=== PATIENT | female | born 1930 | race Caucasian/White ===

== ENCOUNTER → 2017-07-15 | Outpatient (CLI) | payer OTHER ==
[~2017-07-15] MED LIST: LASIX; LEVOXYL; LOVAPOW; POTASSIUM; TYLENOL; [UNRECOGNIZED DRUG - OTHER]
[2017-07-15 10:16] LABS: Basophils # (auto) 0 uL; Basophils % (auto) 0.9 % (0.0-2.0); Eosinophils # (auto) 0.2 uL; Eosinophils % (auto) 3.4 % (0.0-7.0); Hematocrit 41.9 % (36.0-46.0); Hemoglobin 14.3 g/dL (12.2-16.2); Lymphocytes # (auto) 1.5 uL; Lymphocytes % (auto) 27.9 % (10.0-50.0); Mean Corpuscular Hemoglobin 32.2 pg (28.0-32.0); Mean Corpuscular Volume 94.6 fL (80.0-100.0); Mean Platelet Volume 8.1 fL (6.9-10.8); Monocytes # (auto) 0.4 uL; Monocytes % (auto) 8.4 % (0.0-12.0); Neutrophils # (auto) 3.2 uL; Neutrophils % (auto) 59.4 % (37.0-80.0); Platelet Count (auto) 296 10^3/uL (140-450); Red Cell Distribution Width 13.2 % (11.8-14.3); White Blood Cell 5.3 10^3/uL (4.4-10.8)
[2017-07-15 10:39] LABS: Albumin 3.7 g/dL (3.4-5.0); BUN/Creatinine Ratio 21.6; Bilirubin, Total 0.5 mg/dL (0.2-1.0); Potassium 3.8 mmol/L (3.5-5.1); Total Protein 7.1 g/dL (6.4-8.2)
[2017-07-15 10:41] LABS: Urine Bilirubin Negative (Negative); Urine Blood Negative /uL (Negative); Urine Color Yellow (Yellow); Urine Glucose Normal (Normal); Urine Ketone Negative (Negative); Urine Mucus FEW (None Seen); Urine Nitrite Negative (Negative); Urine RBC 1 /hpf (0 - 4); Urine Squamous Epithelial Cell FEW /hpf (<5); Urine Urobilinogen Normal (Negative)
== END | disposition home or self-care (01) ==
LOC: LAB 08:25
PROVIDERS: ATTEND Internal Medicine
DX: I11.0 Hypertensive heart disease with heart failure (principal); I50.9 Heart failure, unspecified
CPT/HCPCS: 36415; 80053; 80061; 81001; 82043; 84439; 84443; 85025; 85652

== ENCOUNTER 2017-12-01 09:20 | Emergency (ER) | payer OTHER ==
[~2017-12-01] VITALS: Ht 180.3 cm; Wt 83.9 kg
[2017-12-01 10:09] LABS: Basophils # (auto) 0 uL; Basophils % (auto) 0.3 % (0.0-2.0); Eosinophils # (auto) 0.2 uL; Eosinophils % (auto) 2.5 % (0.0-7.0); Hematocrit 41.5 % (36.0-46.0); Hemoglobin 14.1 g/dL (12.2-16.2); Lymphocytes # (auto) 1.4 uL; Lymphocytes % (auto) 18.3 % (10.0-50.0); Mean Corpuscular Hemoglobin 31.7 pg (28.0-32.0); Mean Corpuscular Hgb Conc. 33.9 g/dL (32.0-36.0); Mean Corpuscular Volume 93.4 fL (80.0-100.0); Monocytes # (auto) 0.6 uL; Monocytes % (auto) 8.2 % (0.0-12.0); Neutrophils # (auto) 5.2 uL; Neutrophils % (auto) 70.7 % (37.0-80.0); Nucleated Red Blood Cells % 0.1 %; Platelet Count (auto) 321 10^3/uL (140-450); Red Blood Cells 4.44 10^6/uL (4.0-5.20); Red Cell Distribution Width 13.8 % (11.8-14.3); White Blood Cell 7.4 10^3/uL (4.4-10.8)
[2017-12-01 10:36] LABS: Alanine Aminotransferase 16 U/L (13-56); Albumin 3.8 g/dL (3.4-5.0); Alkaline Phosphatase 65 U/L (45-117); Anion Gap 10 (5-15); Aspartate Aminotransferase 18 U/L (15-37); BUN/Creatinine Ratio 20.9; Bilirubin, Total 0.7 mg/dL (0.2-1.0); Blood Urea Nitrogen 18 mg/dL (7-18); Calcium 8.9 mg/dL (8.5-10.1); Carbon Dioxide 24 mmol/L (21-32); Chloride 107 mmol/L (98-107); GFR African American 80 mL/min; GFR Non-African American 66 mL/min; Glucose 100 mg/dL (74-106); Sodium 141 mmol/L (136-145); Total Protein 7.3 g/dL (6.4-8.2)
[2017-12-01] MEDS ORDERED: ASPirin-EC 81 mg tab PO ONE (12:00)
[2017-12-01] MEDS ORDERED: ONDANSETRON HCL 4 MG/2 ML VIAL IV ONE (12:30)
[2017-12-01] MEDS ORDERED: MORPHINE SULFATE 4 MG/ML SYR/VIAL IV ONE (13:15)
[2017-12-01 13:43] LABS: Amylase 57 U/L (25-115); Lipase 148 U/L (73-393)
[2017-12-01] MEDS ORDERED: IOHEXOL 350 MG/ML 100ML IJ ONE (16:05)
[2017-12-01 18:07] VITALS: BP 171/77
== END 2017-12-01 18:40 | disposition home or self-care (01) ==
LOC: ER 09:20 → MERGE 09:20 → ER 18:40
DX: R07.89 Other chest pain (principal); N39.0 Urinary tract infection, site not specified; I10 Essential (primary) hypertension; E07.89 Other specified disorders of thyroid; Z90.89 Acquired absence of other organs
CPT/HCPCS: 36415; 71045; 71275; 76705; 80053; 82150; 83690; 84484; 85025; 85379; 93005; 94761; 96374; 96375; 99285; J2270; J2405; Q9967

== ENCOUNTER → 2018-02-12 | Outpatient (CLI) | payer OTHER ==
[~2018-02-12] MED LIST changes: +ASPI81TA27 PO; +FURO40TA4 PO; +LEVO25TA6 PO; +LISI-646 PO
== END | disposition home or self-care (01) ==
LOC: XYW 07:57
PROVIDERS: ATTEND Internal Medicine Cardiovascular Disease
DX: I35.0 Nonrheumatic aortic (valve) stenosis (principal); I34.0 Nonrheumatic mitral (valve) insufficiency; I70.0 Atherosclerosis of aorta; I11.0 Hypertensive heart disease with heart failure; I50.9 Heart failure, unspecified; E78.5 Hyperlipidemia, unspecified; E03.9 Hypothyroidism, unspecified
CPT/HCPCS: 93306

== ENCOUNTER → 2018-03-04 | Day surgery (SDC) | payer OTHER ==
[2018-03-03 12:27] LABS: Basophils # (auto) 0.1 uL; Basophils % (auto) 0.9 % (0.0-2.0); Eosinophils # (auto) 0.2 uL; Eosinophils % (auto) 2.5 % (0.0-7.0); Hematocrit 38.4 % (36.0-46.0); Hemoglobin 12.9 g/dL (12.2-16.2); Lymphocytes # (auto) 1.4 uL; Lymphocytes % (auto) 21.3 % (10.0-50.0); Mean Corpuscular Hemoglobin 31.4 pg (28.0-32.0); Mean Corpuscular Hgb Conc. 33.5 g/dL (32.0-36.0); Mean Corpuscular Volume 93.6 fL (80.0-100.0); Monocytes # (auto) 0.5 uL; Monocytes % (auto) 7.8 % (0.0-12.0); Neutrophils # (auto) 4.3 uL; Neutrophils % (auto) 67.5 % (37.0-80.0); Nucleated Red Blood Cells % 0.2 %; Platelet Count (auto) 302 10^3/uL (140-450); Red Cell Distribution Width 13.4 % (11.8-14.3); White Blood Cell 6.4 10^3/uL (4.4-10.8)
[2018-03-03 12:36] LABS: Urine Bacteria NONE SEEN /hpf (None Seen); Urine Blood Negative /uL (Negative); Urine Specific Gravity 1.009 (1.001-1.035); Urine WBC <1 /hpf (0 - 5)
[2018-03-03 12:48] LABS: INR 0.97 (0.9-1.15); Partial Thromboplastin Time 28.4 sec (23.78-33.04); Prothrombin Time 10.4 sec (9.27-12.13)
[2018-03-03 12:53] LABS: Albumin 3.9 g/dL (3.4-5.0); BUN/Creatinine Ratio 23.2; Bilirubin, Total 0.7 mg/dL (0.2-1.0); Calcium 9.5 mg/dL (8.5-10.1); Total Protein 7.1 g/dL (6.4-8.2)
[~2018-03-04] VITALS: Ht 177.8 cm; Wt 81.6 kg
[~2018-03-04] MED LIST changes: +GLYCOPYRROLATE 0.2 MG/ML 1ML VIAL IV ONE; -LASIX; -LEVOXYL; -LOVAPOW; +ONDANSETRON HCL 4 MG/2 ML VIAL IV ONE; -POTASSIUM; +PROPOFOL 10 MG/ML 20 ML IV ONE; -TYLENOL; -[UNRECOGNIZED DRUG - OTHER]; +ceFAZolin 1GM/100ML 100 ML IV ONE; +ePHEDrine SULFATE 50 MG/ML AMP IV PRN; +fentaNYL CITRATE 100 MCG/2 ML VL IV ONE; +fentaNYL CITRATE 100 MCG/2 ML VL ONE; +hydrALAZINE HCL 20 MG/ML VL IV PRN
[2018-03-04 10:45] VITALS: BP 150/86
== END | disposition home or self-care (01) ==
LOC: SUR 06:59
PROVIDERS: ATTEND Urology
DX: N20.0 Calculus of kidney (principal); H40.9 Unspecified glaucoma; E03.9 Hypothyroidism, unspecified; J45.909 Unspecified asthma, uncomplicated; I50.30 Unspecified diastolic (congestive) heart failure; I12.9 Hypertensive chronic kidney disease with stage 1 through stage 4 chronic kidney disease, or unspecified chronic kidney disease; Z79.82 Long term (current) use of aspirin; Z79.899 Other long term (current) drug therapy; F41.9 Anxiety disorder, unspecified; I70.0 Atherosclerosis of aorta; I70.8 Atherosclerosis of other arteries; E78.5 Hyperlipidemia, unspecified; I50.9 Heart failure, unspecified; N18.2 Chronic kidney disease, stage 2 (mild)
CPT/HCPCS: 36415; 50590; 80053; 81001; 85025; 85610; 85730; J0690; J2704; J3010

== ENCOUNTER 2019-09-13 23:58 | Inpatient (IN) | payer OTHER ==
[~2019-09-13] VITALS: Ht 177.8 cm; Wt 81.5 kg
[~2019-09-13 23:58] MED LIST changes: +ASPI-404 PO; -ASPI81TA27 PO; -GLYCOPYRROLATE 0.2 MG/ML 1ML VIAL IV ONE; -ONDANSETRON HCL 4 MG/2 ML VIAL IV ONE; -PROPOFOL 10 MG/ML 20 ML IV ONE; -ceFAZolin 1GM/100ML 100 ML IV ONE; -ePHEDrine SULFATE 50 MG/ML AMP IV PRN; -fentaNYL CITRATE 100 MCG/2 ML VL IV ONE; -fentaNYL CITRATE 100 MCG/2 ML VL ONE; -hydrALAZINE HCL 20 MG/ML VL IV PRN
[2019-09-14] VITALS (7 sets, daily range): BP systolic 110–140; BP diastolic 55–66
--- NOTE | 2019-09-14 | NUR ---
Direct Admit Note ALEC BURGOS admitted to Telemetry/MS unit as a direct admit from [facility]. Patient oriented to Elis Singleton, primary RN, unit, room, bed, and unit. Patient is oriented to self only at this time. Patient now on continuous telemetry monitoring, tele box # 3. Patient placed on bedside oxygen and weighed by bed scale. MD notified of patients arrival and admit orders received. Will continue to round q1hr and prn.
[2019-09-14] MEDS ORDERED: LATA0.0020 OP (00:13)
[2019-09-14] MEDS ORDERED: ACETAMINOPHEN 325 MG TAB PO PRN (00:30)
[2019-09-14] MEDS ORDERED: ALUM & MAG HYDROX-SIMETH LIQ(MAALOX) 30 ML PO PRN (00:30)
[2019-09-14] MEDS ORDERED: LORazepam 0.5 MG TAB PO PRN (00:30)
[2019-09-14] MEDS ORDERED: DOCUSATE SOD 100 MG CAP PO PRN (00:30)
[2019-09-14] MEDS ORDERED: HYDROcodone-ACET 5/325MG TAB PO PRN (00:30)
[2019-09-14] MEDS ORDERED: ONDANSETRON HCL 4 MG/2 ML VIAL IV PRN (00:30)
[2019-09-14] MEDS ORDERED: MORPHINE SULFATE 4 MG/ML SYR/VIAL IV PRN (00:30)
--- NOTE | 2019-09-14 01:42 | NUR ---
UA SENT TO LAB
[2019-09-14] MEDS: SODIUM CHLORIDE 0.9% 1,000 ML IV SCH ×2 (01:43→17:11)
[2019-09-14 02:11] LABS: Urine Bacteria FEW /hpf (None Seen); Urine Blood 3+ /uL (Negative); Urine Mucus FEW (None Seen); Urine WBC 34 /hpf (0 - 5)
[2019-09-14] MEDS ORDERED: FUROSEMIDE 40 MG TAB PO SCH (06:00)
[2019-09-14] MEDS: LEVOTHYROXINE SODIUM 25 MCG TAB PO SCH (06:34)
[2019-09-14 07:54] LABS: Basophils # (auto) 0.1 uL; Basophils % (auto) 0.7 % (0.0-2.0); Eosinophils # (auto) 0 uL; Eosinophils % (auto) 0.4 % (0.0-7.0); Hematocrit 33.7 % (36.0-46.0); Hemoglobin 11.8 g/dL (12.2-16.2); Lymphocytes # (auto) 0.9 uL; Lymphocytes % (auto) 10.3 % (10.0-50.0); Mean Corpuscular Hemoglobin 32.9 pg (28.0-32.0); Mean Corpuscular Hgb Conc. 35.1 g/dL (32.0-36.0); Mean Corpuscular Volume 93.5 fL (80.0-100.0); Monocytes # (auto) 0.8 uL; Neutrophils % (auto) 79.6 % (37.0-80.0); Platelet Count (auto) 286 10^3/uL (140-450); Red Cell Distribution Width 13.2 % (11.8-14.3); White Blood Cell 8.8 10^3/uL (4.4-10.8)
[2019-09-14 09:15] LABS: BUN/Creatinine Ratio 25.3; Calcium 8.2 mg/dL (8.5-10.1); Potassium 3.9 mmol/L (3.5-5.1)
[2019-09-14] MEDS: LATANOPROST 0.005 % OPTH(EYE) SOL 2.5ML OP SCH ×2 (10:55→21:55)
[2019-09-14] MEDS: cefTRIAXone 1GM/50ML D5W 50 ML IV SCH (10:55)
[2019-09-14] MEDS: ASPirin-EC 81 mg tab PO SCH (10:55)
[2019-09-14] MEDS: LISINOPRIL 20 MG TAB PO SCH ×2 (10:56→21:56)
--- NOTE | 2019-09-14 13:15 | NUR ---
CALLED PHARMACY TO CLARIFY HOME MEDICATION.
--- NOTE | 2019-09-14 13:28 | NUR ---
PATIENT BEING TAKEN DOWN FOR MRI. NO S/S OF DISTRESS NOTED AT THIS TIME.
[2019-09-14] MEDS ORDERED: LORazepam 2MG/ML-1ML VIAL IV ONE (13:45)
--- NOTE | 2019-09-14 13:45 | NUR ---
PT WENT DOWN TO MRI. ATTEMPT P.T. LATER.
--- NOTE | 2019-09-14 19:35 | NUR ---
Dr Bui at bedside
--- NOTE | 2019-09-14 20:03 | NUR ---
open note assumed care of pt. upon entering room pt awake, alert and oriented x4. pt on room air no distress noted or expressed. pt denies any pain. pt has sifuentes catheter draining clear yellow. pt updated on plan of care, no questions at this time. pt bed locked, low and 2x rails up. call light in reach, encouraged to call as needed. this nurse will round q1hr and prn.
[2019-09-14] MEDS ORDERED: ATORVASTATIN 20 MG TAB PO SCH (22:00)
[2019-09-15 05:00] VITALS: BP 114/65
[2019-09-15 06:33] LABS: Basophils # (auto) 0.1 uL; Basophils % (auto) 0.8 % (0.0-2.0); Eosinophils # (auto) 0.4 uL; Eosinophils % (auto) 4.9 % (0.0-7.0); Hematocrit 31.4 % (36.0-46.0); Hemoglobin 11.1 g/dL (12.2-16.2); Lymphocytes # (auto) 1.4 uL; Lymphocytes % (auto) 19.1 % (10.0-50.0); Mean Corpuscular Hgb Conc. 35.5 g/dL (32.0-36.0); Monocytes # (auto) 0.8 uL; Monocytes % (auto) 11.2 % (0.0-12.0); Neutrophils # (auto) 4.8 uL; Nucleated Red Blood Cells % 0.1 %; Platelet Count (auto) 245 10^3/uL (140-450); Red Blood Cells 3.37 10^6/uL (4.0-5.20); Red Cell Distribution Width 13.1 % (11.8-14.3); White Blood Cell 7.4 10^3/uL (4.4-10.8)
[2019-09-15 06:49] LABS: Magnesium 1.9 mg/dL (1.6-2.6); Potassium 3.8 mmol/L (3.5-5.1)
[2019-09-15] MEDS: LEVOTHYROXINE SODIUM 25 MCG TAB PO SCH (06:51)
[2019-09-15 06:53] LABS: BUN/Creatinine Ratio 25.7
[2019-09-15 08:29] VITALS: BP 132/54
[2019-09-15] MEDS: LATANOPROST 0.005 % OPTH(EYE) SOL 2.5ML OP SCH ×2 (10:00→10:25)
[2019-09-15] MEDS: SODIUM CHLORIDE 0.9% 1,000 ML IV SCH (10:25)
[2019-09-15] MEDS: cefTRIAXone 1GM/50ML D5W 50 ML IV SCH (10:25)
[2019-09-15] MEDS: ASPirin-EC 81 mg tab PO SCH (10:25)
[2019-09-15] MEDS: LISINOPRIL 20 MG TAB PO SCH (10:26)
--- NOTE | 2019-09-15 11:55 | NUR ---
EEG COMPLETED AT BEDSIDE.
[2019-09-15] MEDS ORDERED: LATANOPROST 0.005 % OPTH(EYE) SOL 2.5ML OP SCH ×2 (12:00→22:00)
[2019-09-15 12:57] VITALS: BP 137/69
[2019-09-15] MEDS ORDERED: MAGNESIUM SULFATE 1GM/100ML 100 ML IV ONE (13:00)
--- NOTE | 2019-09-15 13:00 | NUR ---
Sifuentes catheter dc'd Order to discontinue sifuentes catheter. Sifuentes dc'd with clean technique following deflation of balloon. Patient tolerated well with no complaints of pain. Continue care.
--- NOTE | 2019-09-15 15:11 | NUR ---
IV insertion IV access obtained, via clean sterile technique by inserting 20 gauge catheter at LFA after 1 attempt(s). IV secured properly. No trauma to site. Patient tolerated well. LFA IV DC'D DUE TO INFILTRATION NOTE:
--- NOTE | 2019-09-15 16:35 | NUR ---
Assessment and SS consult Pt is an 89 yr old alert and oriented female. SS consult given for "HH for PT, med management and vitals" and for "D/C planning" Pt lives alone with a close friend on her property who helps out. Pt's friend, Ailyn Swanson is her emergency contact at [phone]. Prior to admit, pt was ambulatory with walker and was independent with ADL's. Pt brought to hospital due to altered mental status. pt has income and doesn't have an AD on file. Pt's friend can transport home upon d/c. Pt would benefit from receiving HH for PT, med management, and vitals due to living alone and having limited mobility and assistance. Addendum: 09/15/19 at 1641 by JUVENTINO CARRANZA Amended: Links added.
[2019-09-15 16:43] VITALS: BP 142/60
--- NOTE | 2019-09-15 17:30 | NUR ---
PATIENT URINATED CLEAR YELLOW URINE.
--- NOTE | 2019-09-15 18:00 | NUR ---
PT REPORTS THAT SHE WALKS FINE AND DOES NOT NEED P.T.
[2019-09-15 21:36] VITALS: BP 151/73
[2019-09-15] MEDS ORDERED: ATORVASTATIN 20 MG TAB PO SCH (22:00)
[2019-09-15] MEDS: ASPIRIN-DIPYRIDAMOLE (25/200MG) CAPSULE PO SCH (22:24)
[2019-09-16] MEDS: SODIUM CHLORIDE 0.9% 1,000 ML IV SCH (02:25)
[2019-09-16 05:07] VITALS: BP 144/62
[2019-09-16] MEDS: LEVOTHYROXINE SODIUM 25 MCG TAB PO SCH (06:44)
--- NOTE | 2019-09-16 07:50 | NUR ---
ASSUMED CARE OF PT AWAKE PLEASANT APPROPRIATE. LUNG SOUNDS CLEAR. ANTICIPATING DC HOME TODAY. EXPLAINS THAT SHE HAS A TALL WALKER GIFTED TO HER BY FAMILY THAT WORKS WELL FOR HER.
[2019-09-16] MEDS ORDERED: ATOR20TA50 PO (08:23)
[2019-09-16] MEDS ORDERED: AGG25C PO (08:23)
[2019-09-16] MEDS ORDERED: LISI-646 PO (08:23)
[2019-09-16 09:00] VITALS: BP 147/69
--- NOTE | 2019-09-16 09:00 | NUR ---
MD COMES TO BEDSIDE. PT IS IN BATHROOM. DEMONSTRATES SLOW STEADY GAIT FROM BATHROOM TO BEDSIDE WITH OUT USE OF WALKER AND MANIPULATES THE IV POLE WITH EASE. PT STATES EARLIER IN EARLIER ASSESSMENT THAT HER DAUGHTER IS COMING TODAY TO STAY WITH HER AT HER HOME. EXPLAINS DC HOME TODAY.
[2019-09-16] MEDS: ASPIRIN-DIPYRIDAMOLE (25/200MG) CAPSULE PO SCH (10:00)
[2019-09-16] MEDS ORDERED: LISINOPRIL 20 MG TAB PO SCH (10:00)
[2019-09-16] MEDS ORDERED: LEVO250T19 PO (10:30)
[2019-09-16] MEDS: cefTRIAXone 1GM/50ML D5W 50 ML IV SCH (10:48)
[2019-09-16 11:59] VITALS: BP 147/69
--- NOTE | 2019-09-16 12:22 | NUR ---
MESSAGE LEFT WITH PHYSICAL THERAPY ASKING TO ROUND ON PT BEFORE DC HOME PER REQUEST OF .
[2019-09-16 13:00] VITALS: BP 157/75
--- NOTE | 2019-09-16 14:00 | NUR ---
PT DECLINES OUT[employer]OR [employer] FOR HOME HEALTH BOTH PATIENT AND DAUGHTER BELIEVE HER LIVING ARRANGEMENTS ARE ADEQUATE.
--- NOTE | 2019-09-16 14:25 | NUR ---
PT STATES PT AMBULATES WELL INDEPENDENTLY. OK TO DC HOME.
--- NOTE | 2019-09-16 16:12 | NUR ---
primary rn stated pt has declined HH. She is to put her note in reflecting that statement
== END 2019-09-16 14:30 | disposition home or self-care (01) | DRG 64 ==
LOC: TELE-EAST 23:58
PROVIDERS: ADMIT Hospitalist; ATTEND Internal Medicine
DX: I63.542 Cerebral infarction due to unspecified occlusion or stenosis of left cerebellar artery (principal); G93.41 Metabolic encephalopathy; N39.0 Urinary tract infection, site not specified; I10 Essential (primary) hypertension; E78.5 Hyperlipidemia, unspecified; E03.9 Hypothyroidism, unspecified; Z96.653 Presence of artificial knee joint, bilateral; Z79.82 Long term (current) use of aspirin; Z90.49 Acquired absence of other specified parts of digestive tract
CPT/HCPCS: 36415; 70551; 80048; 80061; 81001; 83735; 84443; 85025; 85652; 87081; 87086; 93306; 95819; G0378; J0696

== ENCOUNTER → 2019-10-07 | Outpatient (CLI) | payer OTHER ==
[~2019-10-07] MED LIST changes: +ATOR20TA50 PO; -FURO40TA4 PO; +LATA0.0020 OP; +LEVO250T19 PO
[2019-10-07 10:38] LABS: Basophils # (auto) 0 uL; Basophils % (auto) 0.4 % (0.0-2.0); Eosinophils # (auto) 0.1 uL; Eosinophils % (auto) 1.2 % (0.0-7.0); Hematocrit 37.2 % (36.0-46.0); Hemoglobin 12.7 g/dL (12.2-16.2); Lymphocytes # (auto) 1.1 uL; Lymphocytes % (auto) 12.5 % (10.0-50.0); Mean Corpuscular Hemoglobin 32.3 pg (28.0-32.0); Mean Corpuscular Hgb Conc. 34.2 g/dL (32.0-36.0); Mean Corpuscular Volume 94.3 fL (80.0-100.0); Monocytes # (auto) 0.5 uL; Monocytes % (auto) 6.2 % (0.0-12.0); Neutrophils # (auto) 6.8 uL; Neutrophils % (auto) 79.7 % (37.0-80.0); Platelet Count (auto) 313 10^3/uL (140-450); Red Blood Cells 3.95 10^6/uL (4.0-5.20); Red Cell Distribution Width 14.2 % (11.8-14.3); White Blood Cell 8.5 10^3/uL (4.4-10.8)
[2019-10-07 10:50] LABS: Calcium 9.3 mg/dL (8.5-10.1); Potassium 4.1 mmol/L (3.5-5.1)
[2019-10-07 10:55] LABS: BUN/Creatinine Ratio 18.3; Bilirubin, Total 0.8 mg/dL (0.2-1.0); Total Protein 7.3 g/dL (6.4-8.2)
== END | disposition home or self-care (01) ==
LOC: LAB 10:23
PROVIDERS: ATTEND Internal Medicine
DX: I10 Essential (primary) hypertension (principal); R51 Headache
CPT/HCPCS: 36415; 80053; 85025

== ENCOUNTER → 2019-10-21 | Outpatient (CLI) | payer OTHER ==
[~2019-10-21] MED LIST changes: +CIP500T PO; +CLOP75TA28 PO; -LISI-646 PO; +LISI40TA PO; +MET500T PO
[2019-10-21 13:32] LABS: Basophils # (auto) 0 uL; Basophils % (auto) 0.4 % (0.0-2.0); Eosinophils # (auto) 0.1 uL; Eosinophils % (auto) 1.8 % (0.0-7.0); Hematocrit 35.7 % (36.0-46.0); Hemoglobin 12.1 g/dL (12.2-16.2); Lymphocytes % (auto) 14.2 % (10.0-50.0); Mean Corpuscular Hemoglobin 31.5 pg (28.0-32.0); Mean Corpuscular Hgb Conc. 33.9 g/dL (32.0-36.0); Mean Corpuscular Volume 92.8 fL (80.0-100.0); Monocytes # (auto) 0.7 uL; Monocytes % (auto) 9.2 % (0.0-12.0); Neutrophils # (auto) 5.5 uL; Neutrophils % (auto) 74.4 % (37.0-80.0); Platelet Count (auto) 337 10^3/uL (140-450); Red Blood Cells 3.85 10^6/uL (4.0-5.20); Red Cell Distribution Width 13.7 % (11.8-14.3); White Blood Cell 7.4 10^3/uL (4.4-10.8)
[2019-10-21 13:41] LABS: Albumin 3.7 g/dL (3.4-5.0); Calcium 9.2 mg/dL (8.5-10.1); Potassium 3.6 mmol/L (3.5-5.1)
[2019-10-21 13:49] LABS: BUN/Creatinine Ratio 10.8; Bilirubin, Total 0.5 mg/dL (0.2-1.0); CRP High Sensitivity 1.92 mg/dL (< 0.3); Total Protein 7.2 g/dL (6.4-8.2)
== END | disposition home or self-care (01) ==
LOC: LAB 12:55
PROVIDERS: ATTEND Internal Medicine
DX: K57.32 Diverticulitis of large intestine without perforation or abscess without bleeding (principal)
CPT/HCPCS: 36415; 80053; 85025; 85652; 86141

== ENCOUNTER → 2019-11-04 | Outpatient (CLI) | payer OTHER ==
[2019-11-04 11:46] LABS: Basophils # (auto) 0 uL; Basophils % (auto) 0.6 % (0.0-2.0); Eosinophils # (auto) 0.1 uL; Eosinophils % (auto) 1.2 % (0.0-7.0); Hematocrit 39.8 % (36.0-46.0); Hemoglobin 13.5 g/dL (12.2-16.2); Lymphocytes # (auto) 1.2 uL; Mean Corpuscular Hemoglobin 31.5 pg (28.0-32.0); Mean Corpuscular Volume 92.5 fL (80.0-100.0); Monocytes # (auto) 0.4 uL; Monocytes % (auto) 5.4 % (0.0-12.0); Neutrophils # (auto) 5.5 uL; Neutrophils % (auto) 76.8 % (37.0-80.0); Platelet Count (auto) 415 10^3/uL (140-450); Red Cell Distribution Width 13.7 % (11.8-14.3); White Blood Cell 7.2 10^3/uL (4.4-10.8)
[2019-11-04 12:29] LABS: CRP High Sensitivity 0.04 mg/dL (< 0.3); Potassium 4.1 mmol/L (3.5-5.1)
== END | disposition home or self-care (01) ==
LOC: LAB 10:54
PROVIDERS: ATTEND Internal Medicine
DX: K57.32 Diverticulitis of large intestine without perforation or abscess without bleeding (principal)
CPT/HCPCS: 36415; 84132; 85025; 86141

== ENCOUNTER → 2020-08-17 | Outpatient (CLI) | payer OTHER ==
[~2020-08-17] MED LIST changes: -ASPI-404 PO; +ASPI-543 PO; -LISI40TA PO; +LISI40TA11 PO
[2020-08-17 09:26] LABS: Basophils # (auto) 0 10 ^3/uL (0-0.2); Basophils % (auto) 0.5 % (0.0-2.0); Eosinophils # (auto) 0.2 10 ^3/uL (0-0.8); Eosinophils % (auto) 2.4 % (0.0-7.0); Hematocrit 36.9 % (36.0-46.0); Hemoglobin 12.2 g/dL (12.2-16.2); Lymphocytes % (auto) 11.6 % (10.0-50.0); Mean Corpuscular Hemoglobin 30.9 pg (28.0-32.0); Mean Corpuscular Hgb Conc. 32.9 g/dL (32.0-36.0); Mean Corpuscular Volume 93.8 fL (80.0-100.0); Monocytes # (auto) 0.6 10 ^3/uL (0-1.3); Monocytes % (auto) 7.4 % (0.0-12.0); Neutrophils # (auto) 6.5 10 ^3/uL (1.6-8.6); Neutrophils % (auto) 78.1 % (37.0-80.0); Nucleated Red Blood Cells % 0.1 %; Platelet Count (auto) 343 10^3/uL (140-450); Red Blood Cells 3.94 10^6/uL (4.0-5.20); Red Cell Distribution Width 13.2 % (11.8-14.3); White Blood Cell 8.3 10^3/uL (4.4-10.8)
[2020-08-17 09:52] LABS: Albumin 3.8 g/dL (3.4-5.0); Calcium 9.1 mg/dL (8.5-10.1); Potassium 4.2 mmol/L (3.5-5.1); Uric Acid 6.6 mg/dL (2.6-6.0)
[2020-08-17 09:58] LABS: BUN/Creatinine Ratio 34.7; Bilirubin, Total 0.8 mg/dL (0.2-1.0)
[2020-08-17 15:43] LABS: Urine Blood Negative /uL (Negative); Urine Specific Gravity 1.024 (1.001-1.035)
== END | disposition home or self-care (01) ==
LOC: LAB 08:43
PROVIDERS: ATTEND Internal Medicine
DX: I10 Essential (primary) hypertension (principal)
CPT/HCPCS: 36415; 80053; 80061; 81003; 84439; 84443; 84550; 85025; 85652; 86038; 86200; 86431

== ENCOUNTER → 2020-10-20 | Outpatient (CLI) | payer OTHER ==
[2020-10-20 11:55] LABS: Basophils # (auto) 0.1 10 ^3/uL (0-0.2); Basophils % (auto) 0.6 % (0.0-2.0); Eosinophils # (auto) 0.2 10 ^3/uL (0-0.8); Eosinophils % (auto) 1.7 % (0.0-7.0); Hematocrit 35.1 % (36.0-46.0); Hemoglobin 11.9 g/dL (12.2-16.2); Lymphocytes # (auto) 1.3 10 ^3/uL (0.4-5.4); Lymphocytes % (auto) 13.6 % (10.0-50.0); Mean Corpuscular Hemoglobin 31.1 pg (28.0-32.0); Mean Corpuscular Hgb Conc. 33.7 g/dL (32.0-36.0); Mean Corpuscular Volume 92.3 fL (80.0-100.0); Monocytes # (auto) 0.6 10 ^3/uL (0-1.3); Monocytes % (auto) 6.6 % (0.0-12.0); Neutrophils # (auto) 7.2 10 ^3/uL (1.6-8.6); Neutrophils % (auto) 77.5 % (37.0-80.0); Platelet Count (auto) 313 10^3/uL (140-450); Red Blood Cells 3.81 10^6/uL (4.0-5.20); Red Cell Distribution Width 13.1 % (11.8-14.3); White Blood Cell 9.2 10^3/uL (4.4-10.8)
[2020-10-20 13:35] LABS: Potassium 4.4 mmol/L (3.5-5.1)
[2020-10-20 13:43] LABS: Albumin 3.7 g/dL (3.4-5.0); BUN/Creatinine Ratio 35.5; Bilirubin, Total 0.5 mg/dL (0.2-1.0); Calcium 8.7 mg/dL (8.5-10.1); Total Protein 7.1 g/dL (6.4-8.2)
[2020-10-21 08:07] LABS: Immunoglobulin G, Serum 856 mg/dL (586-1602)
== END | disposition home or self-care (01) ==
LOC: LAB 11:37
PROVIDERS: ATTEND Internal Medicine
DX: I10 Essential (primary) hypertension (principal); E79.0 Hyperuricemia without signs of inflammatory arthritis and tophaceous disease; G62.9 Polyneuropathy, unspecified
CPT/HCPCS: 36415; 80053; 82607; 82784; 84550; 85025; 85652; 86334

== ENCOUNTER → 2021-01-10 | Outpatient (CLI) | payer OTHER ==
[2021-01-10 14:44] LABS: Basophils # (auto) 0 10 ^3/uL (0-0.2); Basophils % (auto) 0.5 % (0.0-2.0); Eosinophils # (auto) 0.2 10 ^3/uL (0-0.8); Eosinophils % (auto) 2.8 % (0.0-7.0); Hematocrit 37.9 % (36.0-46.0); Hemoglobin 12.8 g/dL (12.2-16.2); Lymphocytes % (auto) 22.4 % (10.0-50.0); Mean Corpuscular Hemoglobin 30.9 pg (28.0-32.0); Mean Corpuscular Hgb Conc. 33.8 g/dL (32.0-36.0); Mean Corpuscular Volume 91.5 fL (80.0-100.0); Monocytes # (auto) 0.6 10 ^3/uL (0-1.3); Monocytes % (auto) 7.3 % (0.0-12.0); Neutrophils # (auto) 5.8 10 ^3/uL (1.6-8.6); Nucleated Red Blood Cells % 0.1 %; Platelet Count (auto) 329 10^3/uL (140-450); Red Blood Cells 4.15 10^6/uL (4.0-5.20); Red Cell Distribution Width 13.3 % (11.8-14.3); White Blood Cell 8.7 10^3/uL (4.4-10.8)
== END | disposition home or self-care (01) ==
LOC: LAB 14:07
PROVIDERS: ATTEND Internal Medicine
DX: D64.9 Anemia, unspecified (principal)
CPT/HCPCS: 36415; 84132; 85025

== ENCOUNTER → 2021-02-23 | Outpatient (CLI) | payer OTHER ==
[2021-02-23 16:28] LABS: Basophils # (auto) 0.1 10 ^3/uL (0-0.2); Basophils % (auto) 0.7 % (0.0-2.0); Eosinophils # (auto) 0.1 10 ^3/uL (0-0.8); Eosinophils % (auto) 1.5 % (0.0-7.0); Hematocrit 36.9 % (36.0-46.0); Hemoglobin 12.7 g/dL (12.2-16.2); Lymphocytes # (auto) 1.8 10 ^3/uL (0.4-5.4); Lymphocytes % (auto) 26.7 % (10.0-50.0); Mean Corpuscular Hgb Conc. 34.4 g/dL (32.0-36.0); Mean Corpuscular Volume 93.1 fL (80.0-100.0); Monocytes # (auto) 0.6 10 ^3/uL (0-1.3); Neutrophils # (auto) 4.4 10 ^3/uL (1.6-8.6); Neutrophils % (auto) 63.1 % (37.0-80.0); Nucleated Red Blood Cells % 0.3 %; Platelet Count (auto) 301 10^3/uL (140-450); Red Blood Cells 3.96 10^6/uL (4.0-5.20); Red Cell Distribution Width 13.8 % (11.8-14.3); White Blood Cell 6.9 10^3/uL (4.4-10.8)
[2021-02-23 16:44] LABS: Albumin 4.3 g/dL (3.4-5.0); BUN/Creatinine Ratio 38.5; CRP High Sensitivity 0.02 mg/dL (< 0.3); Calcium 9.5 mg/dL (8.5-10.1); Potassium 4.3 mmol/L (3.5-5.1)
[2021-02-23 16:46] LABS: Bilirubin, Total 0.5 mg/dL (0.2-1.0); Total Protein 7.7 g/dL (6.4-8.2)
== END | disposition home or self-care (01) ==
LOC: LAB 15:41
PROVIDERS: ATTEND Internal Medicine
DX: I10 Essential (primary) hypertension (principal); M25.50 Pain in unspecified joint
CPT/HCPCS: 36415; 80053; 82550; 83970; 84439; 84443; 84550; 85025; 85652; 86141; 86200; 86225; 86235